=== PATIENT | male | born 1985 | race Caucasian/White ===

== ENCOUNTER → 2018-03-16 08:48 | Outpatient (CLI) | payer OTHER, SELFPAY ==
--- NOTE | 2018-03-16 | DI.MRI.S_ITS ---
PROCEDURE: MR ANKLE RT WO CON INDICATIONS: SPRAIN OF RIGHT ANKLE TECHNIQUE: Noncontrast sagittal T1 spin echo and T2 fast spin echo with fat saturation, axial proton density fast spin echo and T2 fast spin echo with fat saturation, coronal T1 spin echo and T2 fast spin echo with fat saturation through the ankle/hindfoot. COMPARISON: None. FINDINGS: Image quality: Excellent. Bones and joints: No bone marrow contusions or fractures. No hindfoot coalitions. No osteochondral injuries of the talar dome. No pathologic joint effusions. Medial structures: The posterior tibialis, flexor digitorum longus, and flexor hallucis longus tendons are intact. Small amount of fluid surrounds the tibialis posterior tendon. The posterior tibial neurovascular bundle appears normal within the tarsal tunnel, without extrinsic mass effect. The deep layer (anterior and posterior tibiotalar ligaments) and superficial layer (tibionavicular, tibiospring, and tibiocalcaneal ligaments) of the deltoid ligament appear normal. The spring ligament components (superomedial calcaneonavicular, medioplantar oblique calcaneonavicular, and inferoplantar longitudinal ligaments) are intact. Lateral structures: The anterior talofibula and calcaneofibular ligaments are intact. The posterior talofibular ligament demonstrates high signal intensity within its substance. More superiorly, the anterior and posterior tibiofibular ligaments appear intact, as is the intermalleolar ligament. The tibiofibular syndesmosis is normal in width at 2 mm or less. The peroneus longus and brevis tendons demonstrate normal location and morphology. Adjacent bony peroneal tubercle and retrotrochlear prominence are normal in size. The sinus tarsi demonstrates normal fatty signal, without edema, fibrosis, or cyst formation. Visualized sinus tarsi components (cervical ligament, interosseous talocalcaneal ligament, roots of the inferior extensor retinaculum) appear normal. The calcaneonavicular and calcaneocuboid components of the bifurcate ligament appear intact. The dorsal calcaneocuboid ligament appears intact. Anterior structures: The tibialis anterior, extensor hallucis longus, and extensor digitorum longus tendons appear intact. The dorsal talonavicular ligament appears intact. Posterior and plantar structures: Achilles tendon is intact. Small amount of fluid adjacent to the calcaneal insertion of the Achilles tendon is present. Medial and lateral bands of the plantar fascia are of normal thickness. No abductor digiti quinti muscle atrophy to suggest Lowry neuropathy. IMPRESSION: 1. Partial thickness tear of the posterior talofibular ligament. 2. Mild tenosynovitis of the tibialis posterior tendon. 3. Mild insertional tendinitis of the Achilles tendon. 4. No fracture. Dictated by: Julia Gonzalez M.D. on 03/16/2018 at 10:19 Approved by: Julia Gonzalez M.D. on 03/16/2018 at 10:21
== END ==
PROVIDERS: Family Provider Orthopaedic Surgery; Visit Provider Student in an Organized Health Care Education/Training Program
DX: S93.491A Sprain of other ligament of right ankle, initial encounter (principal); M76.61 Achilles tendinitis, right leg; M65.871 Other synovitis and tenosynovitis, right ankle and foot
CPT/HCPCS: 73721

== ENCOUNTER → 2019-05-09 12:28 | Outpatient (CLI) | payer OTHER, SELFPAY ==
[2019-05-13 14:00] LABS: Calprotectin, Stool 17.4 mcg/g
== END ==
PROVIDERS: Visit Provider Internal Medicine Gastroenterology
DX: R19.7 Diarrhea, unspecified (principal)
CPT/HCPCS: 83993; 87045; 87177; 87329; 87493; 87899

== ENCOUNTER 2019-05-11 07:57 | Day surgery (SDC) | payer OTHER, SELFPAY ==
[2019-05-11] VITALS (7 sets, daily range): BP systolic 109–125; BP diastolic 80–93; PULSE 77–92; RESP 12–20; TEMP 36.1–36.7; O2SAT 93–99; BMI 33.6
--- NOTE | 2019-05-11 | PATH_ITS ---
[facility] Accession Number: [id number] . 01 Material submitted: . PART A: colon - RANDOM COLON BIOPSIES PART B: colon - DESCENDING COLON POLYP . 01 Clinical history: . A. R/O COLITIS . 02 Diagnosis: A. Random Colon, Biopsies: Colonic mucosa with no diagnostic abnormality. Negative for active, chronic and microscopic colitls. Negative for dysplasia and malignancy. . B. Descending Colon, Polyp, Biopsy: Tubular adenoma. MRV 05/12/2019 1234 Local . 02 Electronically signed: . Desiree Gusman MD, Pathologist NPI- [id number] . 01 Gross description: . Part A: RANDOM COLON BIOPSIES: Received in formalin are multiple fragment(s) of clifford, soft tissue measuring 1.0 x 0.9 x 0.2 cm in aggregate submitted entirely in 1 cassette(s) Part B: DESCENDING COLON POLYP: Received in formalin is 1 fragment(s) of clifford, soft tissue measuring 0.3 x 0.2 x 0.2 cm submitted entirely in 1 cassette(s) /QBJ 05/11/2019 2244 Local . 02 Pathologist provided ICD-10: R19.7, D12.4 . 02 CPT . 478995, 495184 Performed at: 01 [facility] [address] [facility], [place], [place] [id number] MD Carlos Lopez MD Phone: [phone] Performed at: 02 [facility] [address] [place], [place] [id number] MD Desiree Gusman MD Phone: [phone]
--- NOTE | 2019-05-11 08:58 | PM.PREOP ---
Pre-operative Note Interval Note History & Physical reviewed/Exam performed by Physician: Yes Changes to H&P: No H&P completed within 30 days and has changed as indicated here:: none ASA Class (for procedural sedation): I
[2019-05-11] MEDS: SODIUM CHLORIDE 0.9% 1,000 ML 200 ML IV (09:00)
[2019-05-11] MEDS: MIDAZOLAM 5 MG/5 ML VIAL IV (09:10)
[2019-05-11] MEDS: fentaNYL 250 MCG/5 ML INJ IV (09:10)
--- NOTE | 2019-05-11 09:34 | PM.OP.ENDO ---
Operative Date/Time/Diagnoses Date of procedure: 05/11/19 Procedure & Clinicians Study performed: Colonoscopy with snare polypectomy and biopsy Moderate conscious sedation was administered by the endoscopy nurse and supervised by the endoscopist. The following parameters were monitored: Oxygen saturation, heart rate, blood pressure, and response to care. Dose of sedatives: 6 mg midazolam, 100 mcg fentanyl Indications: Diarrhea, rectal bleeding Procedure Notes Procedure in detail: Prior to the procedure, history and physical was performed, and patient medications and allergies were reviewed. Preprocedure nursing history and assessment was reviewed. Patient identification and proposed procedure were verified by the physician and nurse in the procedure room. The physical status of the patient was reassessed after the procedure. After informed consent was obtained including risks, benefits, and alternatives, the scope was passed under direct vision. Throughout the procedure, the patient's blood pressure, pulse, and oxygen saturations were monitored continuously. The colonoscope was introduced through the anus and advanced to the cecum as identified by the appendiceal orifice and ileocecal valve. The patient tolerated the procedure well. Bowel prep was deemed adequate to detect polyps greater than 5 mm. Perianal and digital rectal examinations were unremarkable. Retroflexion in the rectum revealed medium-sized grade 2 internal hemorrhoids A 4 mm sessile polyp was removed from the descending colon with a cold snare and retrieved The remainder of the colon appeared normal. Biopsies were taken throughout the entire colon to rule out microscopic colitis The terminal ileum was normal appearing Impression: 4 mm descending colon polyp removed Internal hemorrhoids Normal terminal ileum Normal appearing colon. Biopsies taken to rule out microscopic colitis Sedation minutes: 15 Complications: other (EBL minimal. No complications) Post-procedure Plan for aftercare: Follow-up pathology results Resume previous diet Resume home medications Follow-up in GI clinic as previously scheduled Discharge home with escort
== END 2019-05-11 10:03 | disposition home or self-care (01) ==
PROVIDERS: Visit Provider Internal Medicine
PROC: 0DJD8ZZ Inspection of Lower Intestinal Tract, Via Natural or Artificial Opening Endoscopic (ICD-10-PCS; CPT 45378; principal; 2019-05-11 09:00)
DX: K64.1 Second degree hemorrhoids (principal); Z80.0 Family history of malignant neoplasm of digestive organs; K62.5 Hemorrhage of anus and rectum; D12.4 Benign neoplasm of descending colon
CPT/HCPCS: 45385; 45380; J2250; J3010